=== PATIENT | female | born 1975 | race Caucasian/White ===

== ENCOUNTER 2021-07-02 14:51 | Emergency (ER) | payer OTHER ==
[~2021-07-02] VITALS: Ht 160 cm; Wt 99.8 kg
[2021-07-02] MEDS ORDERED: DRAMAMINE LESS25 MG PO (17:29)
[2021-07-02] MEDS ORDERED: CARAFATE1 GM PO (17:29)
[2021-07-02] MEDS ORDERED: VISTARIL50 MG PO (17:29)
== END 2021-07-02 17:32 | disposition home or self-care (01) ==
LOC: ER 14:51
DX: K29.60 Other gastritis without bleeding (principal); Z03.818 Encounter for observation for suspected exposure to other biological agents ruled out